=== PATIENT | female | born 1940 | race Hispanic/Latino ===

== ENCOUNTER 2018-11-12 17:48 | Emergency (ER) | payer OTHER ==
[2018-11-12 18:32] LABS: Absolute Lymphocytes (CBC) 1.6 K/uL (0.7-4.9); Absolute Monocytes 0.9 K/uL (0.1-1.3); Absolute Neutrophil 4.3 K/uL (1.8-8.0); Basophils % 0.7 % (0-1.3); Eosinophils % 2.7 % (0-4.4); Hematocrit 34.8 % (36.0-45.0); Lymphocytes % 22.3 % (15.3-44.8); MPV 7.5 fL (7.6-11.3); Monocytes % 12.8 % (3.3-12.3); RBC Red Blood Cell Count 3.77 M/uL (3.86-4.86)
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
[2018-11-12] MEDS ORDERED: DIAZEPAM 2 MG TABLET ONE (20:24)
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
--- NOTE | 2018-11-13 06:02 | EKG ---
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
== END 2018-11-12 20:25 | disposition home or self-care (01) ==
LOC: ER 17:48
DX: M25.511 Pain in right shoulder (principal); M79.10 Myalgia, unspecified site; V49.40XA Driver injured in collision with unspecified motor vehicles in traffic accident, initial encounter; E78.5 Hyperlipidemia, unspecified; Z88.0 Allergy status to penicillin
CPT/HCPCS: 93005; 85025; 80048; 36415; 86900; 86850; 86901; 70450; 72125; 71260; 74177; 99285; Q9967